=== PATIENT | female | born 1955 | race Caucasian/White ===

== ENCOUNTER 2017-02-12 10:03 | Emergency (ER) | payer OTHER ==
[2017-02-12 10:21] VITALS: BP 125/72
--- NOTE | 2017-02-12 11:27 | UC ---
Ear Complaint HPI - HPI Summary HPI Summary: c/o left ear pain for the past 2 days so much she had to take a motrin to fall asleep. She states she started with cold symptoms about 2 weeks ago and currently has facial pain on left side and post nasal drip with green discharge. - History of Current Complaint Chief Complaint: UCEar Stated Complaint: EAR PAIN Time Seen by Provider: 02/12/17 11:00 Hx Obtained From: Patient ?: No Onset/Duration: Gradual Onset Severity Initially: Moderate Severity Currently: Moderate Pain Scale Used: 0-10 Numeric - 6 Aggravating Factors: Cold Alleviating Factors: OTC Meds Associated Signs/Symptoms: Positive: Discharge, Hearing Loss - Allergies/Home Medications Allergies/Adverse Reactions: Allergies Allergy/AdvReac Type Severity Reaction Status Date / Time Sulfa Antibiotics Allergy Hives Verified 02/12/17 10:16 penicllin Allergy Severe Hives/ Uncoded 02/12/17 10:16 EARS SWELLED Oranges Allergy Swelling Uncoded 02/12/17 10:16 SCALLOPS Allergy EXTREME Uncoded 02/12/17 10:16 VOMITING PMH/Surg Hx/FS Hx/Imm Hx Previously Healthy: Yes - Surgical History Surgical History: Yes Surgery Procedure, Year, and Place: . IRODONOMITY/EYE - DRNG - Social History Alcohol Use: Weekly Substance Use Type: None Smoking Status (MU): Never Smoked Tobacco Review of Systems Constitutional: Negative Eyes: Negative ENT: Ear Ache, Sinus Congestion Is Patient Immunocompromised?: No All Other Systems Reviewed And Are Negative: Yes Physical Exam Triage Information Reviewed: Yes Appearance: No Pain Distress Vital Signs: Initial Vital Signs Temp 97.4 F 02/12/17 10:18 Pulse 77 02/12/17 10:18 Resp 16 02/12/17 10:18 BP 125/72 02/12/17 10:18 Pulse Ox 99 02/12/17 10:18 ENT Exam: Other - tender left frontal and maxillary sinus upon palpation ENT: Positive: Pharynx normal, TM red - left Neck exam: Normal Respiratory Exam: Normal Cardiovascular Exam: Normal Ear Complaint Course/Dx - Course Course Of Treatment: take antibiotics as prescribed. Nasal toileting with normal saline, PO fluids - Differential Dx/Diagnosis Provider Diagnoses: Left frontomaxillary sinusitis with otalgia secondary to eustachian tube dysfunction Discharge - Discharge Plan Condition: Stable Disposition: HOME Patient Education Materials: Sinusitis (ED) Referrals: Marilu Bajwa MD [Primary Care Provider] -
== END 2017-02-12 11:35 | disposition home or self-care (01) ==
LOC: UCEAST 10:03
DX: H69.82 Other specified disorders of Eustachian tube, left ear (principal); J32.1 Chronic frontal sinusitis; J32.0 Chronic maxillary sinusitis; R13.10 Dysphagia, unspecified; Z88.2 Allergy status to sulfonamides; Z88.0 Allergy status to penicillin; Z91.018 Allergy to other foods
CPT/HCPCS: 99212; G0463